=== PATIENT | female | born 1980 | race Caucasian/White ===

== ENCOUNTER 2020-06-03 07:25 | Observation (INO) | payer MEDICARE, OTHER ==
[2020-06-03] MEDS ORDERED: Aspirin Chewable 81 MG TAB ONE (07:57)
[2020-06-03 08:45] LABS: Hemoglobin 12.9 g/dL (12.0-16.0); Mean Corpuscular Hemoglobin 26.4 pg (27.0-31.0); Mean Corpuscular Volume 88.1 fL (78.0-98.0); Mean Platelet Volume 7.8 fL (7.4-10.4); Platelet Count 208 thou/uL (130-400); RBC Distribution Width 15.4 % (11.5-14.5); Red Blood Cell (RBC) Count 4.88 mill/uL (4.20-5.40); White Blood Cell (WBC) Count 7.3 thou/uL (4.8-10.8)
[2020-06-03 08:50] LABS: ALT (SGPT) 17 U/L (8-55); AST (SGOT) 13 U/L (5-34); Albumin 3.8 g/dL (3.5-5.0); Alkaline Phosphatase 124 U/L (40-110); Anion Gap 11 mmol/L (10-20); BUN (Urea Nitrogen) 15 mg/dL (7.0-18.7); Bilirubin, Total 0.4 mg/dL (0.2-1.2); CK (CPK) 53 U/L (29-168); Calc. Creatinine Clearance 0 mL/min (70-130); Carbon Dioxide 22 mmol/L (22-29); Chloride 113 mmol/L (98-107); Estimated GFR-MDRD 65; Globulin 2.2 g/dL (2.4-3.5); Glucose 95 mg/dL (70-105); Lipase 31 U/L (8-78); Potassium 4.1 mmol/L (3.5-5.1); Sodium 142 mmol/L (136-145)
--- NOTE | 2020-06-03 08:52 | CT ---
CT BRAIN WITHOUT CONTRAST: HISTORY: Altered mental status FINDINGS: No evidence of acute infarct, hemorrhage, midline shift or abnormal extra-axial fluid collections is seen. The ventricular size is appropriate and the basilar cisterns are patent. The bony calvarium is intact. There is a large dural calcification in the right frontal region anteriorly. The visualize d paranasal sinuses and mastoid air cells are well aerated. IMPRESSION: No CT evidence of acute intracranial process.
[2020-06-03] MEDS ORDERED: Ketorolac Tromethamine 30 MG/ML VIAL ONE (08:54)
[2020-06-03 09:01] LABS: Bilirubin Negative (Negative); Blood, Urine Negative (Negative); Clarity Clear (Clear); Glucose, Urine (Dipstick) Normal (Negative); Ketone, Urine Negative (Negative); Leukocyte Negative Leu/uL (Negative); Nitrite Negative (Negative); Protein, Urine (Dipstick) Negative (Neg-Trace); Specific Gravity, Urine 1.005 (1.002-1.036); Urobilinogen Normal mg/dL (Less than 2)
[2020-06-03 09:07] LABS: #Eosinphils 0.1 thou/uL (0.0-0.7); #Lymphocytes 1.4 thou/uL (1.20-3.40); #Monocytes 0.6 thou/uL (0.11-0.59); #Neutrophils 5.2 thou/uL (1.40-6.50); %Basophils 0.4 % (0.0-1.0); %Eosinophils 1.4 % (0.0-10.0); %Lymphocytes 18.8 % (21.0-51.0); %Monocytes 8.5 % (0.0-10.0); %Neutrophils 70.9 % (42.0-75.0); Anisocytosis SLIGHT = 6-15 cells (100X) (0-5/hpf); MDiff Complete? YES; Ovalocytes SLIGHT = 2-5 cells (100X) (0-1/hpf); Polychromasia SLIGHT = 2-3 cells (100X) (0-2/hpf)
--- NOTE | 2020-06-03 09:43 | RAD ---
PORTABLE CHEST 1 VIEW: DATE: 06/03/2020. TIME: 7:38 AM. HISTORY: Chest pain. FINDINGS/IMPRESSION: The heart size is normal. No focal areas of consolidation, pneumothoraces, pasquale pulmonary edema, or large effusions are seen. POS: OFF
[2020-06-03 10:12] LABS: BHCG - Serum Negative (NEGATIVE); Pregs Control Background? CLEAR/WHITE (CLR/WHITE); Pregs Control Bar Appear? YES (CONTROL BAR)
--- NOTE | 2020-06-03 10:52 | CT ---
CT ANGIOGRAM CHEST WITH CONTRAST FOR PULMONARY EMBOLISM: HISTORY: Elevated D-Dimer. COMPARISON: Radiograph of the chest same day. FINDINGS: CT angiogram chest performed after the intravenous administration of contrast. Three-D rendering pro vided. Pulmonary trunk mildly enlarged at 32 mm. No proximal seminal pulmonary arterial filling def ect. No pericardial effusion. No mediastinal adenopathy. A few patchy ground-glass centrilobular opacities of the knee right upper and right middle lobe relat ively faint. Also a few patchy ground-glass opacities in the lower lobes. There is a focal segmental defect which may be postsurgical in the posterior left 6th rib with the de fect measuring 2.5 cm. No acute rib fracture. Sternum and manubrium are intact. Mild dextroscoliosis of the upper thoracic spine. Upper abdomen is relatively unremarkable. IMPRESSION: 1. No pulmonary embolism. 2. Scattered centrilobular ground-glass opacities suggesting a low-grade infectious process. POS: HOME
[2020-06-03] MEDS ORDERED: Azithromycin 500 MG VIAL ONE (11:09)
[2020-06-03] MEDS ORDERED: cefTRIAXone\\ROCEPHIN 2 GM VIAL ONE (11:09)
[2020-06-03] MEDS ORDERED: Iopamidol-370 76% 500 ML 1 ML ONE (11:55)
[2020-06-03 12:17] LABS: Troponin I 0.012 ng/mL (< 0.028)
[2020-06-03] MEDS ORDERED: Acetaminophen 325 MG TAB PO PRN (12:47)
[2020-06-03 14:59] LABS: SARS-CoV-2 NAA Rapid Test DETECTED (NotDetected)
[2020-06-03 15:48] LABS: Troponin I 0.014 ng/mL (< 0.028)
[2020-06-03 18:04] VITALS: BMI 56.0
[2020-06-03] MEDS ORDERED: Gabapentin 300 MG CAP PO SCH (21:30)
[2020-06-03] MEDS ORDERED: levETIRAcetam 500 MG TAB PO SCH (21:30)
[2020-06-03] MEDS: Famotidine/PF 20 mg/2ml Vial SLOW IVP SCH (21:32)
--- NOTE | 2020-06-03 21:37 | PDOC.EVN ---
Event Note - Event Note Event Note: Patients sister requesting phone call from Dr. Santiago to discuss plan and issues with "misdiagnosis" in the past. Azeb Santoyo [phone].
--- NOTE | 2020-06-03 21:46 | HP ---
CHIEF COMPLAINT: Chest pain. 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 The pain lasted for few minutes and was followed by some sensation of shortness of breath. The patient denies cough, fever, chills, palpitations, or dizziness. In the ER, the patient was found to be saturating well on room air and her symptoms were resolved. D-dimer was elevated and CT angiogram of the chest was obtained, which ruled out pulmonary embolus. REVIEW OF SYSTEMS: Negative except as noted in HPI. PAST MEDICAL HISTORY: Factor V deficiency, protein C and S deficiency, ischemic strokes, seizure disorder. PAST SURGICAL HISTORY: CSF leak repair and lung surgery. SOCIAL HISTORY: The patient drinks socially, she denies smoking and illicit drug use. ALLERGIES: NO KNOWN DRUG ALLERGIES. PHYSICAL EXAMINATION: GENERAL: The patient is alert and oriented x3. HEENT: Head is normocephalic and atraumatic. Extraocular muscles are intact. NECK: Supple. There is no evidence of JVD. CHEST: Clear to auscultation bilaterally. CARDIOVASCULAR: Reveals normal S1, S2, regular rate and rhythm. No murmurs, rubs, or gallops. ABDOMEN: Soft, nontender, nondistended. NEUROLOGIC: Nonfocal. ASSESSMENT: 1. Chest pain rule out acute coronary syndrome. 2. Bilateral infiltrates on CT scan of the chest. Rule out viral infection including COVID-19. 3. Factor V mutation. 4. Protein C and S deficiency. 5. History of cerebrovascular accident. 6. History of seizures. PLAN: 1. The patient will be placed on telemetry and monitored over the next 24 hours. Trend troponins. 2. The patient was given aspirin in the emergency department. We will continue with 81 mg daily. She is reportedly on anticoagulation at home. I will verify her home medications and reconcile them. 3. We will keep the patient n.p.o. after midnight for stress test, if her troponins are unremarkable. We will leave that decision to the day team. Job ID: [id number]
[2020-06-03] MEDS: Ketorolac Tromethamine 30 MG/ML VIAL IVP SCH (23:01)
[2020-06-03] MEDS ORDERED: Zonisamide 100 MG CAP PO SCH (23:59)
[2020-06-04 04:55] LABS: #Eosinphils 0.2 thou/uL (0.0-0.7); #Lymphocytes 1.2 thou/uL (1.20-3.40); #Monocytes 0.5 thou/uL (0.11-0.59); #Neutrophils 2.8 thou/uL (1.40-6.50); %Basophils 0.8 % (0.0-1.0); %Eosinophils 3.3 % (0.0-10.0); %Lymphocytes 25.4 % (21.0-51.0); %Monocytes 10.5 % (0.0-10.0); %Neutrophils 60.1 % (42.0-75.0); Hemoglobin 11.8 g/dL (12.0-16.0); Mean Corpuscular HGB CONC 30.2 g/dL (32.0-36.0); Mean Corpuscular Hemoglobin 27.1 pg (27.0-31.0); Mean Corpuscular Volume 89.9 fL (78.0-98.0); Mean Platelet Volume 7.9 fL (7.4-10.4); Platelet Count 182 thou/uL (130-400); RBC Distribution Width 15.3 % (11.5-14.5); Red Blood Cell (RBC) Count 4.37 mill/uL (4.20-5.40); White Blood Cell (WBC) Count 4.7 thou/uL (4.8-10.8)
[2020-06-04 05:12] LABS: Anion Gap 12 mmol/L (10-20); BUN (Urea Nitrogen) 13 mg/dL (7.0-18.7); CRP (Inflammatory) 2.22 mg/dL (= or < 0.5); Calc. Creatinine Clearance 214 mL/min (70-130); Calcium 7.5 mg/dL (7.8-10.44); Carbon Dioxide 17 mmol/L (22-29); Chloride 115 mmol/L (98-107); Estimated GFR-MDRD 87; Glucose 90 mg/dL (70-105); Potassium 3.8 mmol/L (3.5-5.1); Sodium 140 mmol/L (136-145)
[2020-06-04] MEDS: Ketorolac Tromethamine 30 MG/ML VIAL IVP SCH ×2 (05:51→13:36)
[2020-06-04] MEDS ORDERED: levETIRAcetam 500 MG TAB PO SCH (09:00)
[2020-06-04] MEDS ORDERED: AcetaZOLAMIDE 250 MG TAB PO SCH (09:00)
[2020-06-04] MEDS ORDERED: Gabapentin 300 MG CAP PO SCH (09:00)
[2020-06-04] MEDS ORDERED: Ascorbic Acid 500 mg Chewable Tablet PO SCH (09:00)
[2020-06-04] MEDS ORDERED: Aspirin 81 mg Enteric Coated Tablet PO SCH (09:00)
[2020-06-04] MEDS ORDERED: Zinc Sulfate 220 MG CAP PO SCH (09:00)
[2020-06-04] MEDS: Famotidine/PF 20 mg/2ml Vial SLOW IVP SCH (09:58)
[2020-06-04] MEDS ORDERED: Zonisamide 100 MG CAP PO SCH (10:30)
[2020-06-04 12:33] VITALS: BP 127/66; TEMP 98.9
[2020-06-04] MEDS ORDERED: Rivaroxaban 10 MG TAB PO SCH (17:00)
[2020-06-04] MEDS ORDERED: Pramipexole Di-HCl 0.125 MG TAB PO SCH (21:00)
--- NOTE | 2020-06-04 21:47 | EKG ---
Test Reason : STAT Blood Pressure : / mmHG Vent. Rate : 071 BPM Atrial Rate : 071 BPM P-R Int : 148 ms QRS Dur : 094 ms QT Int : 418 ms P-R-T Axes : 037 046 028 degrees QTc Int : 454 ms Normal sinus rhythm Normal ECG No previous ECGs available Confirmed by Eda ANDRADE ([id number]) on 06/04/2020 9:46:52 PM Referred By: ARSENIO EDEN Confirmed By:Eda ANDRADE
--- NOTE | 2020-06-05 07:14 | DIS ---
DATE OF ADMISSION: 06/03/2020 DATE OF DISCHARGE: 06/04/2020 DISCHARGE DIAGNOSES: 1. COVID-19 infection. 2. Chest pain, likely related to COVID-19. 3. Factor V mutation. 4. Protein C and S deficiency. 5. History of cerebrovascular accident. 6. History of seizures. DISCHARGE MEDICATIONS: The patient will continue her home medications with the addition of aspirin 81 mg orally daily. 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 She presented today with complaints of chest pain and shortness of breath after waking up from sleep. She denies fever, chills, cough, palpitation, or dizziness. The patient stated that she had trouble moving and speaking as well for a duration of time. In the ER, the patient was not hypoxic. Her D-dimer was elevated and CT scan of the chest with contrast showed no evidence of pulmonary embolism and did show bilateral infiltrates. Her rapid COVID-19 test was positive. Serial troponins were unremarkable. The patient remained stable and her oxygenation did not decline. Her CT scan of the head was negative. At this time, the patient's chest pain is likely due to COVID-19 infection. She is not in hypoxic respiratory failure and is stable to be discharged to home. I have discussed home management and isolation with the patient's family. Job ID: [id number]
[2020-06-05] MEDS ORDERED: Zonisamide 100 MG CAP PO SCH (09:00)
--- NOTE | 2020-06-05 14:14 | EKG ---
Test Reason : Blood Pressure : / mmHG Vent. Rate : 076 BPM Atrial Rate : 076 BPM P-R Int : 118 ms QRS Dur : 088 ms QT Int : 396 ms P-R-T Axes : 026 025 011 degrees QTc Int : 445 ms Normal sinus rhythm Normal ECG Confirmed by TEODORO BUNN, KIMBERLY ([id number]), editor dictionary TRENTON HILLMAN ([id number]) on 06/05/2020 2:13:53 PM Referred By: Confirmed By:KIMBERLY VALERIO MD
== END 2020-06-04 17:23 | disposition home or self-care (01) ==
LOC: ERS 07:25 → 2SW 11:09
PROVIDERS: ADMIT Internal Medicine; ATTEND Internal Medicine
DX: U07.1 COVID-19 (principal); D68.51 Activated protein C resistance; D68.59 Other primary thrombophilia; G40.909 Epilepsy, unspecified, not intractable, without status epilepticus; Z79.01 Long term (current) use of anticoagulants; Z79.82 Long term (current) use of aspirin; Z79.899 Other long term (current) drug therapy; Z86.73 Personal history of transient ischemic attack (TIA), and cerebral infarction without residual deficits; Z88.1 Allergy status to other antibiotic agents; Z88.2 Allergy status to sulfonamides
CPT/HCPCS: 70450; 71045; 71275; 80048; 80053; 80177; 81003; 82550; 82728; 83605; 83690; 83735; 83880; 84146; 84484 ×2; 84703; 85025 ×2; 85379; 86140; 87040; 93005; 94760; 96375; 96376 ×2; G0378 ×3; U0002; 36415; 93010; 96361; 96365; 96367; J0456; J0696; J1885; Q9967; S0028